=== PATIENT | female | born 1995 | race Caucasian/White ===

== ENCOUNTER 2017-09-02 19:43 | Emergency (ER) | payer OTHER ==
[~2017-09-02] VITALS: Ht 162.6 cm; Wt 56.8 kg
[~2017-09-02 19:43] MED LIST: ASPI-556 PO
[2017-09-02 20:17] LABS: BILIRUBIN,URINE NEGATIVE (NEGATIVE); GLUCOSE, URINE (UA) NEGATIVE (NEGATIVE); KETONES,URINE NEGATIVE (NEGATIVE); LEUKOCYTE ESTERASE ,URINE SMALL (NEGATIVE); NITRATE,URINE NEGATIVE (NEGATIVE); OCCULT BLOOD,URINE NEGATIVE (NEGATIVE); PH,URINE 5.5 (5.0-8.0); PROTEIN,URINE NEGATIVE (NEGATIVE); UROBILINOGEN,URINE 0.2 mg/dL (<=1.0)
[2017-09-02 20:29] LABS: APPEARANCE,URINE HAZY (CLEAR); BACTERIA,URINE None Seen /HPF (None Seen); RBC,URINE None Seen /HPF (0-2); SQUAMOUS EPITHELIAL CELL,UR Moderate /LPF (None Seen)
[2017-09-02 22:59] VITALS: BP 106/61
== END 2017-09-02 23:12 | disposition home or self-care (01) ==
LOC: EMS 21:15
DX: A08.4 Viral intestinal infection, unspecified (principal); F41.9 Anxiety disorder, unspecified; F14.90 Cocaine use, unspecified, uncomplicated
CPT/HCPCS: 99284

== ENCOUNTER 2018-01-08 20:49 | Emergency (ER) | payer OTHER ==
[~2018-01-08] VITALS: Ht 157.5 cm; Wt 61.4 kg
[2018-01-08] MEDS ORDERED: BUPR-93 PO (20:52)
[2018-01-08] MEDS ORDERED: BUSP10TA23 PO (20:52)
[2018-01-08] MEDS ORDERED: LORazepam 1 MG TABLET PO ONE (21:30)
[2018-01-08 21:39] LABS: BASOPHILS % (AUTO) 0.2 % (0.0-2.0); EOSINOPHILS % (AUTO) 0 % (1.0-6.0); HEMATOCRIT 40.1 % (36-46); HEMOGLOBIN 13.7 g/dL (12.0-16.0); LYMPHOCYTES # (AUTO) 1.5 K/uL (1.0-4.8); LYMPHOCYTES % (AUTO) 17.9 % (22.0-44.0); MEAN CORPUSCULAR HEMOGLOBIN 30.4 pg (26.0-34.0); MEAN CORPUSCULAR HGB CONC 34.1 G/dL (31.0-37.0); MEAN CORPUSCULAR VOLUME 89 fL (80-100); MONOCYTES # (AUTO) 0.7 K/uL (0.1-1.0); MONOCYTES % (AUTO) 7.7 % (2.0-9.0); NEUTROPHILS # (AUTO) 6.3 K/uL (1.8-7.7); NEUTROPHILS % (AUTO) 74.2 % (40.0-70.0); PLATELET COUNT (AUTO) 419 K/uL (150-450)
[2018-01-08 21:52] LABS: ANION GAP 17 mmol/L (8-16); CALCIUM, TOTAL 9.8 mg/dL (8.8-10.5); CARBON DIOXIDE 22 mmol/L (22-29); CHLORIDE 101 mmol/L (98-107); CREATININE 0.75 mg/dL (0.60-1.30); GLOMERULAR FILTR. RATE CALC > 60 mL/min (>60); GLUCOSE,RANDOM 96 mg/dL (70-110); POTASSIUM 3.2 mmol/L (3.5-5.1); SODIUM SERUM 140 mmol/L (136-145); UREA NITROGEN, BLOOD 7 mg/dL (7-18)
[2018-01-08 21:58] LABS: ALANINE AMINOTRANSFERASE 20 U/L (12-78); ALBUMIN 4.5 g/dL (3.4-5.0); ALKALINE PHOSPHATASE 66 U/L (46-116); ASPARTATE AMINOTRANSFERASE 19 U/L (15-37); BILIRUBIN,TOTAL 0.8 mg/dL (0.1-1.0); TOTAL PROTEIN, SERUM 7.8 g/dL (6.4-8.2)
[2018-01-08] MEDS ORDERED: POTASSIUM CHLORIDE 20 MEQ ER TABLET PO ONE (22:00)
[2018-01-08] MEDS ORDERED: MORPHINE SULFATE 2 MG/ML SYRINGE IVP ONE (23:30)
[2018-01-09] MEDS ORDERED: ONDANSETRON HCL 4 MG/2 ML VIAL IVP ONE
[2018-01-09 00:57] VITALS: BP 148/93
== END 2018-01-09 00:58 | disposition home or self-care (01) ==
LOC: EMS 20:49
DX: F41.9 Anxiety disorder, unspecified (principal); R25.2 Cramp and spasm; R06.4 Hyperventilation; R06.82 Tachypnea, not elsewhere classified; M79.1 Myalgia; F32.9 Major depressive disorder, single episode, unspecified; F14.90 Cocaine use, unspecified, uncomplicated
CPT/HCPCS: 36415; 71045; 80053; 84703; 85025; 85379; 93005; 96374; 96375; 99285; G0480; J2270; J2405

== ENCOUNTER 2018-01-09 12:48 | Emergency (ER) | payer OTHER ==
[~2018-01-09] VITALS: Ht 165.1 cm; Wt 47.3 kg
[~2018-01-09 12:48] MED LIST changes: +BUPR-93 PO; +BUSP10TA23 PO
[2018-01-09] MEDS ORDERED: IBUPROFEN 400 MG TABLET PO ONE (17:15)
[2018-01-09] MEDS ORDERED: HydrOXYzine PAMOATE 50 MG CAPSULE PO ONE (17:15)
[2018-01-09 20:29] VITALS: BP 128/72
== END 2018-01-09 20:30 | disposition home or self-care (01) ==
LOC: EMS 12:49
DX: F41.9 Anxiety disorder, unspecified (principal); R07.89 Other chest pain; F32.9 Major depressive disorder, single episode, unspecified; F14.90 Cocaine use, unspecified, uncomplicated
CPT/HCPCS: 36415; 93005; 99285; G0480

== ENCOUNTER 2018-05-06 12:45 | Emergency (ER) | payer OTHER ==
[~2018-05-06] VITALS: Ht 162.6 cm; Wt 54.1 kg
[~2018-05-06 12:45] MED LIST changes: -ASPI-556 PO
[2018-05-06] MEDS ORDERED: BUPR-93 PO (12:53)
[2018-05-06] MEDS ORDERED: BUSP15 PO (12:53)
[2018-05-06 15:06] VITALS: BP 132/80
[2018-05-06 15:20] LABS: BASOPHILS % (AUTO) 0.2 % (0.0-2.0); EOSINOPHILS % (AUTO) 0.1 % (1.0-6.0); HEMATOCRIT 38.6 % (36-46); HEMOGLOBIN 13.1 g/dL (12.0-16.0); LYMPHOCYTES # (AUTO) 1.2 K/uL (1.0-4.8); LYMPHOCYTES % (AUTO) 20.1 % (22.0-44.0); MEAN CORPUSCULAR HEMOGLOBIN 30.7 pg (26.0-34.0); MEAN CORPUSCULAR VOLUME 90 fL (80-100); MONOCYTES # (AUTO) 0.4 K/uL (0.1-1.0); MONOCYTES % (AUTO) 6.4 % (2.0-9.0); NEUTROPHILS # (AUTO) 4.3 K/uL (1.8-7.7); NEUTROPHILS % (AUTO) 73.2 % (40.0-70.0); PLATELET COUNT (AUTO) 377 K/uL (150-450); RED BLOOD CELL COUNT(AUTO) 4.27 MIL/uL (4.00-5.20); RED CELL DISTRIBUTION WIDTH 13.7 % (11.5-14.5)
[2018-05-06 15:30] LABS: ANION GAP 10 mmol/L (8-16); CALCIUM, TOTAL 8.6 mg/dL (8.8-10.5); CARBON DIOXIDE 26 mmol/L (22-29); CHLORIDE 103 mmol/L (98-107); CREATININE 0.67 mg/dL (0.60-1.30); GLOMERULAR FILTR. RATE CALC > 60 mL/min (>60); GLUCOSE,RANDOM 90 mg/dL (70-110); POTASSIUM 3.2 mmol/L (3.5-5.1); SODIUM SERUM 139 mmol/L (136-145); UREA NITROGEN, BLOOD 9 mg/dL (7-18)
[2018-05-06 15:43] LABS: ALANINE AMINOTRANSFERASE 21 U/L (12-78); ALBUMIN 4.1 g/dL (3.4-5.0); ALKALINE PHOSPHATASE 61 U/L (46-116); ASPARTATE AMINOTRANSFERASE 19 U/L (15-37); BILIRUBIN,TOTAL 0.8 mg/dL (0.1-1.0); HCG,QUANTITATIVE 1 mIU/mL (0-6); LIPASE 171 U/L (73-393); TOTAL PROTEIN, SERUM 7.2 g/dL (6.4-8.2)
== END 2018-05-06 15:50 | disposition home or self-care (01) ==
LOC: EMS 12:45
DX: R07.89 Other chest pain (principal); F41.9 Anxiety disorder, unspecified; F32.9 Major depressive disorder, single episode, unspecified; F14.90 Cocaine use, unspecified, uncomplicated; Z88.0 Allergy status to penicillin
CPT/HCPCS: 85379; 93005

== ENCOUNTER 2018-11-04 14:03 | Emergency (ER) | payer OTHER ==
[~2018-11-04] VITALS: Ht 162.6 cm; Wt 56.8 kg
[~2018-11-04 14:03] MED LIST changes: -BUSP10TA23 PO; +BUSP15 PO
[2018-11-04] MEDS ORDERED: LAMO25 PO (14:20)
[2018-11-04] MEDS ORDERED: PROP10TA73 PO (14:20)
[2018-11-04] MEDS ORDERED: DIAZEPAM 5 MG TABLET PO ONE (15:30)
[2018-11-04 16:46] VITALS: BP 113/71
== END 2018-11-04 16:59 | disposition home or self-care (01) ==
LOC: EMS 14:03
DX: F41.9 Anxiety disorder, unspecified (principal); F12.188 Cannabis abuse with other cannabis-induced disorder; R07.9 Chest pain, unspecified; R20.0 Anesthesia of skin; F32.9 Major depressive disorder, single episode, unspecified; F14.90 Cocaine use, unspecified, uncomplicated; Z88.0 Allergy status to penicillin; Z88.5 Allergy status to narcotic agent
CPT/HCPCS: 93005

== ENCOUNTER 2018-11-21 18:13 | Emergency (ER) | payer OTHER ==
[~2018-11-21] VITALS: Ht 160 cm; Wt 57.7 kg
[~2018-11-21 18:13] MED LIST changes: +LAMO25 PO; +PROP10TA73 PO
[2018-11-21] MEDS ORDERED: DIAZ5 PO (19:07)
[2018-11-21] MEDS ORDERED: SUMA25TA9 PO (19:07)
[2018-11-21 20:33] VITALS: BP 112/74
== END 2018-11-21 20:35 | disposition home or self-care (01) ==
LOC: EMS 18:15
DX: L25.1 Unspecified contact dermatitis due to drugs in contact with skin (principal); F41.9 Anxiety disorder, unspecified; F32.9 Major depressive disorder, single episode, unspecified; F11.90 Opioid use, unspecified, uncomplicated; Z79.899 Other long term (current) drug therapy; Z88.1 Allergy status to other antibiotic agents; Z88.5 Allergy status to narcotic agent; Z88.0 Allergy status to penicillin

== ENCOUNTER 2019-02-05 01:13 | Emergency (ER) | payer OTHER ==
[~2019-02-05] VITALS: Ht 165.1 cm; Wt 50.0 kg
[~2019-02-05 01:13] MED LIST changes: +DIAZ5 PO; +SUMA25TA9 PO
[2019-02-05 02:49] LABS: BASOPHILS % (AUTO) 0.4 % (0.0-2.0); EOSINOPHILS % (AUTO) 0.9 % (1.0-6.0); HEMATOCRIT 39.7 % (36-46); HEMOGLOBIN 13.3 g/dL (12.0-16.0); LYMPHOCYTES # (AUTO) 2.3 K/uL (1.0-4.8); LYMPHOCYTES % (AUTO) 38.5 % (22.0-44.0); MEAN CORPUSCULAR HEMOGLOBIN 30.1 pg (26.0-34.0); MEAN CORPUSCULAR HGB CONC 33.6 G/dL (31.0-37.0); MEAN CORPUSCULAR VOLUME 90 fL (80-100); MONOCYTES # (AUTO) 0.6 K/uL (0.1-1.0); MONOCYTES % (AUTO) 10.8 % (2.0-9.0); NEUTROPHILS % (AUTO) 49.4 % (40.0-70.0); PLATELET COUNT (AUTO) 351 K/uL (150-450); RED BLOOD CELL COUNT(AUTO) 4.43 MIL/uL (4.00-5.20); RED CELL DISTRIBUTION WIDTH 13.3 % (11.5-14.5)
[2019-02-05 03:00] LABS: ANION GAP 9 mmol/L (8-16); CALCIUM, TOTAL 9.6 mg/dL (8.8-10.5); CARBON DIOXIDE 28 mmol/L (22-29); CHLORIDE 102 mmol/L (98-107); GLOMERULAR FILTR. RATE CALC > 60 mL/min (>60); GLUCOSE,RANDOM 108 mg/dL (70-110); POTASSIUM 3.5 mmol/L (3.5-5.1); SODIUM SERUM 139 mmol/L (136-145); UREA NITROGEN, BLOOD 13 mg/dL (7-18)
[2019-02-05 03:02] LABS: PROTHROMBIN TIME 10.5 SEC (9.4-11.6)
[2019-02-05] MEDS: SODIUM CHLORIDE 0.9% 1,000 ML IV ONE (03:03)
[2019-02-05 03:11] LABS: B-TYPE NATRIURETIC PEPTIDE < 5 pg/mL (0-100)
[2019-02-05 03:12] LABS: ALANINE AMINOTRANSFERASE 11 U/L (12-78); ALBUMIN 4.1 g/dL (3.4-5.0); ALKALINE PHOSPHATASE 62 U/L (46-116); ASPARTATE AMINOTRANSFERASE 14 U/L (15-37); BILIRUBIN,TOTAL 0.4 mg/dL (0.1-1.0); HCG,QUANTITATIVE < 1 mIU/mL (0-6); TOTAL PROTEIN, SERUM 7.4 g/dL (6.4-8.2)
[2019-02-05 04:01] LABS: APPEARANCE,URINE CLOUDY (CLEAR); BILIRUBIN,URINE NEGATIVE (NEGATIVE); GLUCOSE, URINE (UA) NEGATIVE (NEGATIVE); KETONES,URINE 15 mg/dL (NEGATIVE); LEUKOCYTE ESTERASE ,URINE MODERATE (NEGATIVE); NITRATE,URINE POSITIVE (NEGATIVE); OCCULT BLOOD,URINE NEGATIVE (NEGATIVE); PROTEIN,URINE NEGATIVE (NEGATIVE)
[2019-02-05 04:18] LABS: RBC,URINE 0-2 /HPF (0-2)
[2019-02-05 04:19] LABS: BACTERIA,URINE Few /HPF (None Seen); SQUAMOUS EPITHELIAL CELL,UR Many /LPF (None Seen)
[2019-02-05] MEDS ORDERED: NITROFURANTOIN MACROCRYSTAL 100 MG CAPSULE PO ONE (04:45)
[2019-02-05 04:47] VITALS: BP 108/62
== END 2019-02-05 05:20 | disposition home or self-care (01) ==
LOC: EMS 01:14
DX: F41.9 Anxiety disorder, unspecified (principal); R07.89 Other chest pain; R06.02 Shortness of breath; R42 Dizziness and giddiness; F32.9 Major depressive disorder, single episode, unspecified; F14.90 Cocaine use, unspecified, uncomplicated; F17.210 Nicotine dependence, cigarettes, uncomplicated; Z88.1 Allergy status to other antibiotic agents; Z88.5 Allergy status to narcotic agent; Z88.0 Allergy status to penicillin
CPT/HCPCS: 36415; 71045; 80053; 81001; 83880; 84484; 84702; 85025; 85610; 85730; 87086; 93005; 99285; 99406; J7030

== ENCOUNTER 2019-02-10 03:23 | Emergency (ER) | payer OTHER ==
[~2019-02-10] VITALS: Ht 160 cm; Wt 51.8 kg
[~2019-02-10 03:23] MED LIST changes: -DIAZ5 PO
[2019-02-10] MEDS ORDERED: HYD25 PO (03:50)
[2019-02-10] MEDS ORDERED: SODIUM CHLORIDE 0.9% 1,000 ML IV ONE (06:45)
[2019-02-10 07:23] LABS: BASOPHILS % (AUTO) 0.3 % (0.0-2.0); EOSINOPHILS % (AUTO) 0.6 % (1.0-6.0); HEMATOCRIT 40.3 % (36-46); HEMOGLOBIN 13.1 g/dL (12.0-16.0); LYMPHOCYTES # (AUTO) 1.8 K/uL (1.0-4.8); LYMPHOCYTES % (AUTO) 26.1 % (22.0-44.0); MEAN CORPUSCULAR HEMOGLOBIN 29.7 pg (26.0-34.0); MEAN CORPUSCULAR HGB CONC 32.5 G/dL (31.0-37.0); MEAN CORPUSCULAR VOLUME 91 fL (80-100); MONOCYTES # (AUTO) 0.8 K/uL (0.1-1.0); NEUTROPHILS # (AUTO) 4.2 K/uL (1.8-7.7); PLATELET COUNT (AUTO) 363 K/uL (150-450); RED BLOOD CELL COUNT(AUTO) 4.41 MIL/uL (4.00-5.20); RED CELL DISTRIBUTION WIDTH 13.5 % (11.5-14.5)
[2019-02-10 07:38] LABS: ANION GAP 11 mmol/L (8-16); CALCIUM, TOTAL 9.3 mg/dL (8.8-10.5); CARBON DIOXIDE 25 mmol/L (22-29); CHLORIDE 103 mmol/L (98-107); CREATININE 0.82 mg/dL (0.60-1.30); GLOMERULAR FILTR. RATE CALC > 60 mL/min (>60); GLUCOSE,RANDOM 95 mg/dL (70-110); POTASSIUM 3.2 mmol/L (3.5-5.1); SODIUM SERUM 139 mmol/L (136-145); UREA NITROGEN, BLOOD 7 mg/dL (7-18)
[2019-02-10 07:49] LABS: ALANINE AMINOTRANSFERASE 12 U/L (12-78); ALBUMIN 4.3 g/dL (3.4-5.0); ALKALINE PHOSPHATASE 61 U/L (46-116); ASPARTATE AMINOTRANSFERASE 15 U/L (15-37); BILIRUBIN,TOTAL 0.4 mg/dL (0.1-1.0); HCG,QUANTITATIVE < 1 mIU/mL (0-6); TOTAL PROTEIN, SERUM 7.4 g/dL (6.4-8.2)
[2019-02-10 08:33] VITALS: BP 126/70
== END 2019-02-10 08:37 | disposition home or self-care (01) ==
LOC: EMS 03:25
DX: R07.89 Other chest pain (principal); F41.9 Anxiety disorder, unspecified; F15.10 Other stimulant abuse, uncomplicated; R42 Dizziness and giddiness; F32.9 Major depressive disorder, single episode, unspecified; F14.90 Cocaine use, unspecified, uncomplicated; Z88.1 Allergy status to other antibiotic agents; Z88.5 Allergy status to narcotic agent; Z88.0 Allergy status to penicillin
CPT/HCPCS: 36415; 71045; 80053; 84484; 84702; 85025; 93005; 96360; 99285; J7030

== ENCOUNTER 2019-02-12 21:55 | Emergency (ER) | payer OTHER ==
[~2019-02-12] VITALS: Ht 160 cm; Wt 51.8 kg
[~2019-02-12 21:55] MED LIST changes: +HYD25 PO
[2019-02-13 00:25] VITALS: BP 128/85
[2019-02-13] MEDS ORDERED: IBUPROFEN 600 MG TABLET PO ONE (00:30)
[2019-02-13] MEDS ORDERED: ACETAMINOPHEN 500 MG TABLET PO ONE (00:30)
[2019-02-13] MEDS ORDERED: BACITRACIN 0.9 GM PACKET OINTMENT TP ONE (00:30)
== END 2019-02-13 01:02 | disposition home or self-care (01) ==
LOC: EMS 21:55
DX: S61.012A Laceration without foreign body of left thumb without damage to nail, initial encounter (principal); F41.9 Anxiety disorder, unspecified; F32.9 Major depressive disorder, single episode, unspecified; F14.90 Cocaine use, unspecified, uncomplicated; F19.90 Other psychoactive substance use, unspecified, uncomplicated; Z88.1 Allergy status to other antibiotic agents; Z88.5 Allergy status to narcotic agent; Z88.0 Allergy status to penicillin; W45.8XXA Other foreign body or object entering through skin, initial encounter; Y93.89 Activity, other specified; Y92.89 Other specified places as the place of occurrence of the external cause; Y99.8 Other external cause status

== ENCOUNTER 2019-08-06 12:12 | Emergency (ER) | payer OTHER ==
[~2019-08-06] VITALS: Ht 162.6 cm; Wt 54.5 kg
[~2019-08-06 12:12] MED LIST changes: -LAMO25 PO; +LAMO25TA25 PO
[2019-08-06 14:18] LABS: GLUCOSE,POINT OF CARE 75 MG/DL (70-110)
[2019-08-06] MEDS ORDERED: SODIUM CHLORIDE 0.9% 2,000 ML IV ONE (14:45)
[2019-08-06] MEDS ORDERED: KETOROLAC TROMETHAMINE 30 MG/ML VIAL IVP ONE (14:45)
[2019-08-06 14:49] LABS: BASOPHILS % (AUTO) 0.7 % (0.0-2.0); EOSINOPHILS % (AUTO) 0.8 % (1.0-6.0); HEMATOCRIT 38.9 % (36-46); LYMPHOCYTES # (AUTO) 2.2 K/uL (1.0-4.8); LYMPHOCYTES % (AUTO) 32.7 % (22.0-44.0); MEAN CORPUSCULAR HEMOGLOBIN 28.9 pg (26.0-34.0); MEAN CORPUSCULAR HGB CONC 33.5 G/dL (31.0-37.0); MEAN CORPUSCULAR VOLUME 86 fL (80-100); MONOCYTES # (AUTO) 0.7 K/uL (0.1-1.0); MONOCYTES % (AUTO) 10.8 % (2.0-9.0); NEUTROPHILS # (AUTO) 3.7 K/uL (1.8-7.7); PLATELET COUNT (AUTO) 409 K/uL (150-450); RED BLOOD CELL COUNT(AUTO) 4.51 MIL/uL (4.00-5.20); RED CELL DISTRIBUTION WIDTH 15.5 % (11.5-14.5)
[2019-08-06] MEDS ORDERED: LAMO25TA25 PO (14:57)
[2019-08-06 15:16] LABS: ALANINE AMINOTRANSFERASE 23 U/L (12-78); ALBUMIN 4.4 g/dL (3.4-5.0); ALKALINE PHOSPHATASE 84 U/L (46-116); ANION GAP 10 mmol/L (8-16); ASPARTATE AMINOTRANSFERASE 16 U/L (15-37); BILIRUBIN,TOTAL 0.7 mg/dL (0.1-1.0); CALCIUM, TOTAL 9.7 mg/dL (8.8-10.5); CARBON DIOXIDE 27 mmol/L (22-29); CHLORIDE 104 mmol/L (98-107); GLOMERULAR FILTR. RATE CALC > 60 mL/min (>60); GLUCOSE,RANDOM 91 mg/dL (70-110); HCG,QUANTITATIVE < 1 mIU/mL (0-6); SODIUM SERUM 141 mmol/L (136-145); TOTAL PROTEIN, SERUM 7.8 g/dL (6.4-8.2); UREA NITROGEN, BLOOD 4 mg/dL (7-18)
[2019-08-06 15:36] LABS: POTASSIUM 2.9 mmol/L (3.5-5.1)
[2019-08-06] MEDS ORDERED: POTASSIUM CHLORIDE 10% 40 MEQ/30 ML LIQUID UDCUP PO ONE ×2 (16:00→16:20)
[2019-08-06 16:52] LABS: AMPHET/METH SCREEN,URINE POSITIVE (NEGATIVE); BARBITURATE SCREEN, URINE NEGATIVE (NEGATIVE); BENZODIAZEPINES SCREEN,URINE NEGATIVE (NEGATIVE); CANNABINOID SCREEN,URINE NEGATIVE (NEGATIVE); COCAINE SCREEN,URINE NEGATIVE (NEGATIVE); METHADONE SCREEN, URINE NEGATIVE (NEGATIVE); OPIATE SCREEN,URINE NEGATIVE (NEGATIVE)
[2019-08-06 17:01] LABS: PHENCYCLIDINE SCREEN,URINE NEGATIVE (NEGATIVE)
[2019-08-06 17:35] VITALS: BP 133/93
== END 2019-08-06 17:37 | disposition home or self-care (01) ==
LOC: EMS 12:14
DX: E87.6 Hypokalemia (principal); R55 Syncope and collapse; R53.1 Weakness; F15.10 Other stimulant abuse, uncomplicated; R07.89 Other chest pain; F41.9 Anxiety disorder, unspecified; F32.9 Major depressive disorder, single episode, unspecified; F11.90 Opioid use, unspecified, uncomplicated; Z79.899 Other long term (current) drug therapy; Z88.0 Allergy status to penicillin; Z88.1 Allergy status to other antibiotic agents; Z88.6 Allergy status to analgesic agent; Z88.5 Allergy status to narcotic agent; Z91.018 Allergy to other foods
CPT/HCPCS: 36415; 80053; 80307; 82962; 84702; 85025; 93005; 96360; 99285; G0480; J7030; 82948; J1885

== ENCOUNTER 2020-05-12 07:31 | Emergency (ER) | payer OTHER ==
[~2020-05-12] VITALS: Ht 162.6 cm; Wt 61.4 kg
[~2020-05-12 07:31] MED LIST changes: -BUSP15 PO; -SUMA25TA9 PO
[2020-05-12] MEDS ORDERED: LORazepam 2 MG/ML VIAL IVP ONE (08:00)
[2020-05-12] MEDS ORDERED: SODIUM CHLORIDE 0.9% 1,000 ML IV ONE (08:00)
[2020-05-12 08:13] LABS: BASOPHILS % (AUTO) 0.7 % (0.0-2.0); EOSINOPHILS % (AUTO) 0.2 % (1.0-6.0); HEMATOCRIT 36.5 % (36-46); HEMOGLOBIN 12.4 g/dL (12.0-16.0); LYMPHOCYTES % (AUTO) 23.6 % (22.0-44.0); MEAN CORPUSCULAR HEMOGLOBIN 30.1 pg (26.0-34.0); MEAN CORPUSCULAR HGB CONC 33.9 G/dL (31.0-37.0); MEAN CORPUSCULAR VOLUME 89 fL (80-100); MONOCYTES # (AUTO) 0.6 K/uL (0.1-1.0); MONOCYTES % (AUTO) 13.8 % (2.0-9.0); NEUTROPHILS # (AUTO) 2.6 K/uL (1.8-7.7); NEUTROPHILS % (AUTO) 61.7 % (40.0-70.0); PLATELET COUNT (AUTO) 383 K/uL (150-450); RED BLOOD CELL COUNT(AUTO) 4.11 MIL/uL (4.00-5.20); RED CELL DISTRIBUTION WIDTH 13.6 % (11.5-14.5)
[2020-05-12] MEDS ORDERED: ACETAMINOPHEN 500 MG TABLET PO ONE (08:15)
[2020-05-12 08:21] LABS: ANION GAP 10 mmol/L (8-16); CALCIUM, TOTAL 8.7 mg/dL (8.8-10.5); CARBON DIOXIDE 25 mmol/L (22-29); CHLORIDE 98 mmol/L (98-107); CREATININE 0.65 mg/dL (0.60-1.30); GLOMERULAR FILTR. RATE CALC > 60 mL/min (>60); GLUCOSE,RANDOM 92 mg/dL (70-110); POTASSIUM 3.3 mmol/L (3.5-5.1); SODIUM SERUM 133 mmol/L (136-145); UREA NITROGEN, BLOOD 9 mg/dL (7-18)
[2020-05-12 08:32] LABS: COVID AG,FIA SOURCE NASOPHARYNGEAL
[2020-05-12 08:35] LABS: B-TYPE NATRIURETIC PEPTIDE 5 pg/mL (0-100)
[2020-05-12 08:45] LABS: ALANINE AMINOTRANSFERASE 24 U/L (12-78); ALBUMIN 4.2 g/dL (3.4-5.0); ALKALINE PHOSPHATASE 89 U/L (46-116); ASPARTATE AMINOTRANSFERASE 32 U/L (15-37); BILIRUBIN,TOTAL 0.8 mg/dL (0.1-1.0); CREATINE KINASE, TOTAL ONLY 143 U/L (26-192); HCG,QUANTITATIVE 1 mIU/mL (0-6); PHOSPHORUS 2.5 mg/dL (2.5-4.9); TOTAL PROTEIN, SERUM 8.3 g/dL (6.4-8.2)
[2020-05-12] MEDS ORDERED: POTASSIUM CHLORIDE 20 MEQ ER TABLET PO ONE (09:00)
[2020-05-12 09:59] VITALS: BP 112/76
[2020-05-12] MEDS ORDERED: ChlordiazePOXIDE HCL 25 MG CAPSULE PO ONE (10:00)
== END 2020-05-12 10:36 | disposition home or self-care (01) ==
LOC: EMS 07:38
DX: F10.239 Alcohol dependence with withdrawal, unspecified (principal); R07.89 Other chest pain; R06.02 Shortness of breath; M79.10 Myalgia, unspecified site; F41.9 Anxiety disorder, unspecified; F32.9 Major depressive disorder, single episode, unspecified; F14.90 Cocaine use, unspecified, uncomplicated; F19.90 Other psychoactive substance use, unspecified, uncomplicated; Z20.828 Contact with and (suspected) exposure to other viral communicable diseases; Z88.0 Allergy status to penicillin; Z88.6 Allergy status to analgesic agent; Z88.5 Allergy status to narcotic agent; Y90.0 Blood alcohol level of less than 20 mg/100 ml
CPT/HCPCS: 36415; 71045; 80053; 82550; 83735; 83880; 84100; 84484; 84702; 85025; 87426; 93005; 96361; 96374; 99285; G0480; J2060; J7030

== ENCOUNTER 2021-12-07 13:25 | Emergency (ER) | payer OTHER ==
[~2021-12-07] VITALS: Ht 162.6 cm; Wt 65.9 kg
[2021-12-07] MEDS ORDERED: OLAN5TAB52 PO (13:30)
[2021-12-07] MEDS ORDERED: VENL50TA44 PO (13:30)
[2021-12-07] MEDS ORDERED: GABA-1216 PO (13:30)
[2021-12-07] MEDS ORDERED: LEVE500T20 PO (13:30)
[2021-12-07] MEDS ORDERED: OLAN10TA26 PO (13:56)
[2021-12-07] MEDS ORDERED: FOLI-130 PO (13:56)
[2021-12-07] MEDS ORDERED: HYDR-4808 PO (13:56)
[2021-12-07] MEDS ORDERED: GABA-1181 PO (13:56)
[2021-12-07] MEDS ORDERED: VENL-67 PO (13:56)
[2021-12-07] MEDS ORDERED: THIA100T92 PO (13:56)
[2021-12-07] MEDS ORDERED: PANT40TA54 PO (13:56)
[2021-12-07 14:14] VITALS: BP 146/76
[2021-12-07] MEDS: LIDOCAINE 1% 10 ML VIAL PERC ONE (14:14)
== END 2021-12-07 14:24 | disposition home or self-care (01) ==
LOC: EMS 13:28
DX: S61.213A Laceration without foreign body of left middle finger without damage to nail, initial encounter (principal); F32.9 Major depressive disorder, single episode, unspecified; F10.20 Alcohol dependence, uncomplicated; F41.9 Anxiety disorder, unspecified; F15.90 Other stimulant use, unspecified, uncomplicated; F14.90 Cocaine use, unspecified, uncomplicated; K70.30 Alcoholic cirrhosis of liver without ascites; W26.0XXA Contact with knife, initial encounter; Y93.89 Activity, other specified; Y92.89 Other specified places as the place of occurrence of the external cause; Y99.8 Other external cause status
CPT/HCPCS: 64450; 99284; J3490

== ENCOUNTER 2023-02-10 15:53 | Emergency (ER) | payer OTHER ==
[~2023-02-10] VITALS: Ht 165.1 cm; Wt 77.3 kg
[~2023-02-10 15:53] MED LIST changes: -BUPR-93 PO; +FOLI-130 PO; +GABA-1181 PO; -HYD25 PO; +HYDR-4808 PO; -LAMO25TA25 PO; +LEVE500T20 PO; +OLAN10TA26 PO; +PANT40TA54 PO; -PROP10TA73 PO; +THIA100T92 PO; +VENL-67 PO
[2023-02-10] MEDS ORDERED: LevETIRAcetam 500 MG in DEXTROSE 5%-WATER 100 ML IV ONE (17:00)
[2023-02-10] MEDS ORDERED: SODIUM CHLORIDE 0.9% 1,000 ML IV ONE (17:00)
[2023-02-10] MEDS ORDERED: LORazepam 1 MG TABLET PO ONE (17:15)
[2023-02-10 17:58] LABS: ANION GAP 14 mmol/L (8-16); CALCIUM, TOTAL 9.9 mg/dL (8.8-10.5); CARBON DIOXIDE 22 mmol/L (22-29); CHLORIDE 99 mmol/L (98-107); CREATININE 0.55 mg/dL (0.60-1.30); GLOMERULAR FILTR. RATE CALC > 60 mL/min (>60); GLUCOSE,RANDOM 100 mg/dL (70-110); POTASSIUM 3.9 mmol/L (3.5-5.1); SODIUM SERUM 135 mmol/L (136-145); UREA NITROGEN, BLOOD 9 mg/dL (7-18)
[2023-02-10 18:04] LABS: ALANINE AMINOTRANSFERASE 48 U/L (12-78); ALBUMIN 4.1 g/dL (3.4-5.0); ALKALINE PHOSPHATASE 109 U/L (46-116); ASPARTATE AMINOTRANSFERASE 61 U/L (15-37); BILIRUBIN,TOTAL 0.3 mg/dL (0.1-1.0); TOTAL PROTEIN, SERUM 7.7 g/dL (6.4-8.2)
[2023-02-10 18:06] LABS: TROPONIN I-HIGH SENSITIVITY 4 ng/L (<51)
[2023-02-10 18:10] LABS: BASOPHILS % (AUTO) 0.4 % (0.0-2.0); EOSINOPHILS % (AUTO) 0.1 % (1.0-6.0); HEMATOCRIT 39.1 % (36-46); LYMPHOCYTES # (AUTO) 2.2 K/uL (1.0-4.8); LYMPHOCYTES % (AUTO) 30.5 % (22.0-44.0); MEAN CORPUSCULAR HEMOGLOBIN 28.3 pg (26.0-34.0); MEAN CORPUSCULAR HGB CONC 33.1 G/dL (31.0-37.0); MEAN CORPUSCULAR VOLUME 86 fL (80-100); MONOCYTES # (AUTO) 0.5 K/uL (0.1-1.0); MONOCYTES % (AUTO) 6.8 % (2.0-9.0); NEUTROPHILS # (AUTO) 4.5 K/uL (1.8-7.7); NEUTROPHILS % (AUTO) 62.2 % (40.0-70.0); PLATELET COUNT (AUTO) 398 K/uL (150-450); RED BLOOD CELL COUNT(AUTO) 4.58 MIL/uL (4.00-5.20); RED CELL DISTRIBUTION WIDTH 14.5 % (11.5-14.5); WHITE BLOOD COUNT (AUTO) 7.3 K/uL (4.5-11.0)
[2023-02-10 21:11] VITALS: BP 124/86; PULSE 92; RESP 16
== END 2023-02-10 21:20 | disposition home or self-care (01) ==
LOC: EMS 15:54
DX: G40.909 Epilepsy, unspecified, not intractable, without status epilepticus (principal); F15.10 Other stimulant abuse, uncomplicated; F41.9 Anxiety disorder, unspecified; F32.A Depression, unspecified; Z88.0 Allergy status to penicillin; Z88.5 Allergy status to narcotic agent
CPT/HCPCS: 99285; 96365; 70450; 71045; 96366; 80053; 83880; 84484; 84703; 85025; 36415; 93005; J0712; J7060; J7030

== ENCOUNTER 2024-12-03 12:55 | Emergency (ER) | payer OTHER ==
[~2024-12-03] VITALS: Ht 162.6 cm; Wt 70.5 kg
[~2024-12-03 12:55] MED LIST changes: +LEVE-71 PO; -LEVE500T20 PO
[2024-12-03 13:01] VITALS: BP 125/95; PULSE 104; RESP 18; TEMP 98.8; O2SAT 99
[2024-12-03] MEDS ORDERED: OLAN15TA98 PO (13:07)
[2024-12-03] MEDS ORDERED: DIVA-112 PO ×2 (13:07→14:40)
[2024-12-03] MEDS ORDERED: DIVALPROEX SODIUM 250 MG DR TABLET PO ONE (13:45)
[2024-12-03 13:50] LABS: BASOPHILS % (AUTO) 0.7 % (0.0-2.0); EOSINOPHILS % (AUTO) 0.3 % (1.0-6.0); HEMATOCRIT 38.7 % (36-46); HEMOGLOBIN 12.9 g/dL (12.0-16.0); LYMPHOCYTES # (AUTO) 2.1 K/uL (1.0-4.8); LYMPHOCYTES % (AUTO) 43.6 % (22.0-44.0); MEAN CORPUSCULAR HEMOGLOBIN 29.7 pg (26.0-34.0); MEAN CORPUSCULAR HGB CONC 33.3 G/dL (31.0-37.0); MEAN CORPUSCULAR VOLUME 89 fL (80-100); MONOCYTES # (AUTO) 0.4 K/uL (0.1-1.0); MONOCYTES % (AUTO) 7.6 % (2.0-9.0); NEUTROPHILS # (AUTO) 2.3 K/uL (1.8-7.7); NEUTROPHILS % (AUTO) 47.8 % (40.0-70.0); PLATELET COUNT (AUTO) 344 K/uL (150-450); RED BLOOD CELL COUNT(AUTO) 4.35 MIL/uL (4.00-5.20); WHITE BLOOD COUNT (AUTO) 4.8 K/uL (4.5-11.0)
[2024-12-03 13:56] LABS: ANION GAP 12 mmol/L (8-16); CALCIUM, TOTAL 8.9 mg/dL (8.8-10.5); CARBON DIOXIDE 24 mmol/L (22-29); CHLORIDE 104 mmol/L (98-107); CREATININE 0.85 mg/dL (0.60-1.30); GLOMERULAR FILTR. RATE CALC > 60 mL/min (>60); GLUCOSE,RANDOM 106 mg/dL (70-110); POTASSIUM 3.7 mmol/L (3.5-5.1); SODIUM SERUM 140 mmol/L (136-145); UREA NITROGEN, BLOOD 10 mg/dL (7-18)
[2024-12-03] MEDS: DIVALPROEX SODIUM 250 MG DR TABLET PO ONE (14:15)
[2024-12-03] MEDS: LORazepam 1 MG TABLET PO ONE (14:15)
[2024-12-03 14:47] LABS: APPEARANCE,URINE CLEAR (CLEAR); BILIRUBIN,URINE NEGATIVE (NEGATIVE); COLOR,URINE YELLOW (YELLOW); GLUCOSE, URINE (UA) NEGATIVE (NEGATIVE); KETONES,URINE NEGATIVE (NEGATIVE); LEUKOCYTE ESTERASE ,URINE NEGATIVE (NEGATIVE); NITRATE,URINE NEGATIVE (NEGATIVE); OCCULT BLOOD,URINE SMALL (NEGATIVE); PROTEIN,URINE 30-70 mg/dL (NEGATIVE); UROBILINOGEN,URINE <=1.0 mg/dL (<=1.0)
[2024-12-03 14:49] LABS: SPECIFIC GRAVITIY, URINE > 1.030 (1.003-1.030)
[2024-12-03 14:52] LABS: WBC,URINE None Seen /HPF (0-5)
[2024-12-03 14:53] LABS: BACTERIA,URINE None Seen /HPF (None Seen); SQUAMOUS EPITHELIAL CELL,UR Few /LPF (None Seen)
[2024-12-03 14:54] LABS: ALCOHOL, URINE DRUG SCREEN NEGATIVE (NEGATIVE); AMPHET/METH SCREEN,URINE POSITIVE (NEGATIVE); BARBITURATE SCREEN, URINE NEGATIVE (NEGATIVE); BENZODIAZEPINES SCREEN,URINE NEGATIVE (NEGATIVE); CANNABINOID SCREEN,URINE NEGATIVE (NEGATIVE); COCAINE SCREEN,URINE NEGATIVE (NEGATIVE); METHADONE SCREEN, URINE NEGATIVE (NEGATIVE); OPIATE SCREEN,URINE NEGATIVE (NEGATIVE); PHENCYCLIDINE SCREEN,URINE NEGATIVE (NEGATIVE)
== END 2024-12-03 17:06 | disposition short-term general hospital (02) ==
LOC: EMS 12:55
DX: F41.9 Anxiety disorder, unspecified (principal); G40.909 Epilepsy, unspecified, not intractable, without status epilepticus; F31.9 Bipolar disorder, unspecified; F15.10 Other stimulant abuse, uncomplicated; F14.90 Cocaine use, unspecified, uncomplicated; F10.90 Alcohol use, unspecified, uncomplicated; Z88.0 Allergy status to penicillin; Z88.5 Allergy status to narcotic agent; Z88.6 Allergy status to analgesic agent; Z87.440 Personal history of urinary (tract) infections; Z79.899 Other long term (current) drug therapy; Y90.9 Presence of alcohol in blood, level not specified
CPT/HCPCS: 80048; 80307; 81001; 84703; 85025; 99285; G0480